=== PATIENT | male | born 1955 | race Caucasian/White ===

== ENCOUNTER 2020-12-14 09:03 | Inpatient (IN) | payer MEDICARE, MEDICAID ==
[2020-12-14] VITALS (7 sets, daily range): BP systolic 104–122; BP diastolic 59–79
[~2020-12-14] VITALS: Ht 182.9 cm; Wt 57.3 kg
[2020-12-14] MEDS ORDERED: MAG HYDROX/AL HYDROX/SIMETH ES 30 ML SUSPENSION UDCUP PO PRN (10:00)
[2020-12-14] MEDS ORDERED: GuaiFENesin/D-METHORPHAN [SUGAR-FREE] 200-20MG/10 ML SYRUP UDCUP PO PRN (10:00)
[2020-12-14] MEDS ORDERED: TUBERCULIN, PURIFIED PROTEIN DERIVATIVE 5 TU/0.1 ML SYRINGE ID ONE (10:00)
[2020-12-14] MEDS ORDERED: PROMETHAZINE HCL 25 MG TABLET PO PRN (10:00)
[2020-12-14] MEDS ORDERED: CYANOCOBALAMIN 1,000 MCG/ML VIAL IM ONE (10:00)
[2020-12-14] MEDS ORDERED: LOPERAMIDE HCL 2 MG CAPSULE PO PRN (10:00)
[2020-12-14] MEDS ORDERED: ACETAMINOPHEN 325 MG TABLET PO PRN (10:00)
[2020-12-14] MEDS ORDERED: HydrOXYzine PAMOATE 50 MG CAPSULE PO PRN (10:00)
[2020-12-14] MEDS ORDERED: ZOLPIDEM TARTRATE 10 MG TABLET PO PRN (10:00)
[2020-12-14] MEDS ORDERED: MAGNESIUM HYDROXIDE SUSPENSION 30 ML UDCUP PO PRN (10:00)
[2020-12-14] MEDS ORDERED: OLANZapine 5 MG RAPDIS TABLET PO PRN (10:00)
[2020-12-14] MEDS ORDERED: LORazepam 2 MG TABLET PO PRN (10:00)
[2020-12-14] MEDS ORDERED: INFLUENZA VIRUS VACCINE QVS 2020-21 (6MO+)/PF 60 MCG/0.5 ML SYRINGE IM ONE (15:15)
[2020-12-14] MEDS: THIAMINE 100 MG TABLET PO SCH (16:37)
[2020-12-14] MEDS: GABAPENTIN 100 MG CAPSULE PO SCH ×2 (16:37→21:00)
[2020-12-14] MEDS: OLANZapine 10 MG RAPDIS TABLET PO SCH (21:00)
[2020-12-14] MEDS: MELATONIN 5 MG TABLET PO SCH (21:00)
[2020-12-15 03:01] VITALS: BP 110/68
[2020-12-15] MEDS ORDERED: LORazepam 2 MG TABLET PO PRN (07:00)
[2020-12-15 08:10] LABS: BASOPHILS % (AUTO) 0.5 % (0.0-2.0); EOSINOPHILS % (AUTO) 3.1 % (1.0-6.0); HEMATOCRIT 45.7 % (41-53); HEMOGLOBIN 15.3 g/dL (13.5-17.5); LYMPHOCYTES # (AUTO) 1.7 K/uL (1.0-4.8); MEAN CORPUSCULAR HEMOGLOBIN 31.4 pg (26.0-34.0); MEAN CORPUSCULAR HGB CONC 33.6 G/dL (31.0-37.0); MEAN CORPUSCULAR VOLUME 94 fL (80-100); MONOCYTES # (AUTO) 0.5 K/uL (0.1-1.0); MONOCYTES % (AUTO) 7.3 % (2.0-9.0); NEUTROPHILS # (AUTO) 4.7 K/uL (1.8-7.7); NEUTROPHILS % (AUTO) 65.1 % (40.0-70.0); PLATELET COUNT (AUTO) 304 K/uL (150-450); RED BLOOD CELL COUNT(AUTO) 4.88 MIL/uL (4.50-5.90); RED CELL DISTRIBUTION WIDTH 13.9 % (11.5-14.5)
[2020-12-15 08:21] VITALS: BP 131/86
[2020-12-15] MEDS: MULTIVITAMINS WITH MINERALS, THERAPEUTIC TABLET PO SCH (08:32)
[2020-12-15] MEDS: FOLIC ACID 1 MG TABLET PO SCH (08:32)
[2020-12-15] MEDS: GABAPENTIN 100 MG CAPSULE PO SCH ×4 (08:33→21:11)
[2020-12-15] MEDS: OMEGA-3/DHA/EPA/FISH OIL 1,000 MG CAPSULE PO SCH (08:33)
[2020-12-15] MEDS: THIAMINE 100 MG TABLET PO SCH ×2 (08:33→17:08)
[2020-12-15] MEDS: NALTREXONE HCL 50 MG TABLET PO SCH (08:33)
[2020-12-15] MEDS: LORazepam 2 MG TABLET PO SCH ×4 (08:33→21:24)
[2020-12-15 08:38] LABS: HEMOGLOBIN A1C 5.3 % (3.8-5.6)
[2020-12-15] MEDS: NICOTINE 21 MG/24 HOUR PATCH TD SCH (08:38)
[2020-12-15 08:41] LABS: ALANINE AMINOTRANSFERASE 70 U/L (12-78); ALBUMIN 3.4 g/dL (3.4-5.0); ALKALINE PHOSPHATASE 108 U/L (46-116); ANION GAP 8 mmol/L (8-16); ASPARTATE AMINOTRANSFERASE 60 U/L (15-37); BILIRUBIN,TOTAL 0.4 mg/dL (0.1-1.0); CALCIUM, TOTAL 9.2 mg/dL (8.8-10.5); CARBON DIOXIDE 30 mmol/L (22-29); CHLORIDE 103 mmol/L (98-107); CHOL/HDL RATIO 2.2 (4.2-7.3); CHOLESTEROL 202 mg/dL (131-200); CREATININE 0.72 mg/dL (0.60-1.30); FREE T4 (FREE THYROXINE) 1.06 ng/dL (0.76-1.46); GLOMERULAR FILTR. RATE CALC > 60 mL/min (>60); GLUCOSE,RANDOM 89 mg/dL (70-110); HDL CHOLESTEROL 93 mg/dL (40-60); LDL CHOL (CALC.) 97 mg/dL (0-130); POTASSIUM 4.8 mmol/L (3.5-5.1); SODIUM SERUM 141 mmol/L (136-145); TOTAL PROTEIN, SERUM 7.2 g/dL (6.4-8.2); TRIGLYCERIDES 62 mg/dL (15-150); UREA NITROGEN, BLOOD 13 mg/dL (7-18)
[2020-12-15 11:00] VITALS: BP 106/70
[2020-12-15 16:35] VITALS: BP 100/64
[2020-12-15 17:11] VITALS: BP 100/64
[2020-12-15] MEDS: MELATONIN 5 MG TABLET PO SCH (21:11)
[2020-12-15] MEDS: OLANZapine 10 MG RAPDIS TABLET PO SCH (21:11)
[2020-12-16 06:20] VITALS: BP 101/60
[2020-12-16 06:57] VITALS: BP 104/64
[2020-12-16 08:30] VITALS: BP 108/67
[2020-12-16 09:17] LABS: APPEARANCE,URINE CLEAR (CLEAR); BILIRUBIN,URINE NEGATIVE (NEGATIVE); GLUCOSE, URINE (UA) NEGATIVE (NEGATIVE); KETONES,URINE NEGATIVE (NEGATIVE); LEUKOCYTE ESTERASE ,URINE NEGATIVE (NEGATIVE); NITRATE,URINE NEGATIVE (NEGATIVE); OCCULT BLOOD,URINE NEGATIVE (NEGATIVE); PROTEIN,URINE NEGATIVE (NEGATIVE); UROBILINOGEN,URINE 0.2 mg/dL (<=1.0)
[2020-12-16] MEDS: NICOTINE 21 MG/24 HOUR PATCH TD SCH (09:22)
[2020-12-16] MEDS: FOLIC ACID 1 MG TABLET PO SCH (09:23)
[2020-12-16] MEDS: THIAMINE 100 MG TABLET PO SCH ×2 (09:23→16:12)
[2020-12-16] MEDS: LORazepam 2 MG TABLET PO SCH ×4 (09:23→20:19)
[2020-12-16] MEDS: GABAPENTIN 100 MG CAPSULE PO SCH ×4 (09:23→20:19)
[2020-12-16] MEDS: MULTIVITAMINS WITH MINERALS, THERAPEUTIC TABLET PO SCH (09:23)
[2020-12-16] MEDS: NALTREXONE HCL 50 MG TABLET PO SCH (09:24)
[2020-12-16] MEDS: OMEGA-3/DHA/EPA/FISH OIL 1,000 MG CAPSULE PO SCH (09:24)
[2020-12-16 09:25] LABS: AMPHET/METH SCREEN,URINE NEGATIVE (NEGATIVE); BARBITURATE SCREEN, URINE NEGATIVE (NEGATIVE); BENZODIAZEPINES SCREEN,URINE NEGATIVE (NEGATIVE); CANNABINOID SCREEN,URINE NEGATIVE (NEGATIVE); COCAINE SCREEN,URINE NEGATIVE (NEGATIVE); METHADONE SCREEN, URINE NEGATIVE (NEGATIVE); OPIATE SCREEN,URINE NEGATIVE (NEGATIVE)
[2020-12-16 09:32] LABS: PHENCYCLIDINE SCREEN,URINE NEGATIVE (NEGATIVE)
[2020-12-16 12:40] VITALS: BP 108/67
[2020-12-16 16:00] VITALS: BP 108/69
[2020-12-16 16:22] VITALS: BP 115/80
[2020-12-16] MEDS: MELATONIN 5 MG TABLET PO SCH (20:19)
[2020-12-16] MEDS: OLANZapine 10 MG RAPDIS TABLET PO SCH (20:19)
[2020-12-17] MEDS ORDERED: LORazepam 1 MG TABLET PO PRN (07:00)
[2020-12-17 07:08] VITALS: BP 106/64
[2020-12-17] MEDS: GABAPENTIN 100 MG CAPSULE PO SCH ×4 (08:22→20:33)
[2020-12-17] MEDS: OMEGA-3/DHA/EPA/FISH OIL 1,000 MG CAPSULE PO SCH (08:22)
[2020-12-17] MEDS: NALTREXONE HCL 50 MG TABLET PO SCH (08:22)
[2020-12-17] MEDS: THIAMINE 100 MG TABLET PO SCH ×2 (08:23→16:29)
[2020-12-17] MEDS: FOLIC ACID 1 MG TABLET PO SCH (08:23)
[2020-12-17] MEDS: LORazepam 1 MG TABLET PO SCH ×4 (08:23→20:33)
[2020-12-17] MEDS: NICOTINE 21 MG/24 HOUR PATCH TD SCH (08:23)
[2020-12-17] MEDS: MULTIVITAMINS WITH MINERALS, THERAPEUTIC TABLET PO SCH (08:23)
[2020-12-17 08:53] VITALS: BP 108/72
[2020-12-17] MEDS ORDERED: LOPERAMIDE HCL 2 MG CAPSULE PO PRN (10:00)
[2020-12-17 10:15] VITALS: BP 108/72
[2020-12-17 16:18] VITALS: BP 101/66
[2020-12-17] MEDS: OLANZapine 10 MG RAPDIS TABLET PO SCH (20:33)
[2020-12-17] MEDS: MELATONIN 5 MG TABLET PO SCH (20:33)
[2020-12-17 21:01] VITALS: BP 101/66
[2020-12-18 06:25] VITALS: BP 109/64
[2020-12-18 06:41] VITALS: BP 108/64
[2020-12-18] MEDS ORDERED: LORazepam 1 MG TABLET PO PRN (07:00)
[2020-12-18 08:00] VITALS: BP 130/90
[2020-12-18 08:10] VITALS: BP 102/68
[2020-12-18] MEDS: OMEGA-3/DHA/EPA/FISH OIL 1,000 MG CAPSULE PO SCH (08:36)
[2020-12-18] MEDS: THIAMINE 100 MG TABLET PO SCH ×2 (08:36→16:17)
[2020-12-18] MEDS: FOLIC ACID 1 MG TABLET PO SCH (08:37)
[2020-12-18] MEDS: GABAPENTIN 100 MG CAPSULE PO SCH ×3 (08:37→16:17)
[2020-12-18] MEDS: NALTREXONE HCL 50 MG TABLET PO SCH (08:37)
[2020-12-18] MEDS: MULTIVITAMINS WITH MINERALS, THERAPEUTIC TABLET PO SCH (08:37)
[2020-12-18] MEDS: NICOTINE 21 MG/24 HOUR PATCH TD SCH (08:38)
[2020-12-18 16:16] VITALS: BP 130/90
[2020-12-18] MEDS ORDERED: OLAN10TA22 PO (16:23)
[2020-12-18] MEDS ORDERED: NALT50TA PO (16:23)
[2020-12-18] MEDS ORDERED: GABA-1216 PO (16:23)
[2020-12-18] MEDS ORDERED: MELA5TAB3 PO (16:23)
[2020-12-18] MEDS ORDERED: OMEG-135 PO (16:23)
== END 2020-12-18 18:35 | disposition home or self-care (01) | DRG 885 ==
LOC: B2X 11:45
PROVIDERS: ADMIT Psychiatry & Neurology Psychiatry; ATTEND Psychiatry & Neurology Psychiatry
DX: F25.9 Schizoaffective disorder, unspecified (principal); F15.90 Other stimulant use, unspecified, uncomplicated; F10.20 Alcohol dependence, uncomplicated; F60.0 Paranoid personality disorder; F17.200 Nicotine dependence, unspecified, uncomplicated; Z55.9 Problems related to education and literacy, unspecified; Z59.9 Problem related to housing and economic circumstances, unspecified; Z65.3 Problems related to other legal circumstances; Z91.14 Patient's other noncompliance with medication regimen
CPT/HCPCS: 80307; 83036; 84439; 84443; 86592; 87081; A9575; J3420